=== PATIENT | male | born 1985 | race Caucasian/White ===

== ENCOUNTER 2020-05-10 06:17 | Emergency (ER) | payer BC, SELFPAY ==
--- NOTE | ~2020-05-10 | XR_ITS ---
EXAMINATION: XR hand RT min 3V DATE: 05/10/2020 06:41 INDICATION: Crush injury to the right hand with pain at the fourth metacarpophalangeal joint. TECHNIQUE: Posteroanterior, oblique and lateral views of the right hand were obtained. COMPARISON: 06/28/2018 FINDINGS: Bone alignment is normal. Old healed fracture of the neck of the fifth metacarpal. No acute fracture. Soft tissue swelling over the dorsum of the hand near the base of the third and fourth metacarpals. IMPRESSION: 1. No acute osseous abnormality. Reviewed, dictated and finalized at location A. H OFFICER
[2020-05-10 06:20] VITALS: BP 135/85; PULSE 103; RESP 18; TEMP 36.4; O2SAT 98
--- NOTE | 2020-05-10 06:59 | ED.GENADULT ---
HPI - General Adult General Chief complaint: Extremity Injury, Upper Stated complaint: right hand injury Time Seen by Provider: 05/10/20 06:56 History of Present Illness HPI narrative: Patient is a 34-year-old gentleman who presents the emergency department with chief complaint of right hand pain. Patient states that he had a alice stand to fall over and whacked his right hand when he was trying to lift up a vehicle that was in the mud. Patient states that he has swelling in his fourth and fifth metacarpal area reports that he has prior history of a fracture of his fifth metacarpal. Related Data Allergies Allergy/AdvReac Type Severity Reaction Status Date / Time ibuprofen Allergy Mild Verified 07/03/18 15:05 Penicillins Allergy Mild Verified 07/03/18 15:05 acetaminophen Allergy Unknown NAUSEATED Verified 07/03/18 15:05 codeine Allergy Unknown NAUSEATED Verified 07/03/18 15:05 Review of Systems Review of Systems: Narrative: A 10 system review of systems was completed on the patient and is negative except for what is stated in the HPI. Nursing and ancillary documentation was reviewed. PMFSH Social History Social History Smoking status: Smoker, status unknown Alcohol intake: never Comments Past history of fifth metacarpal fracture Reports that he smokes cigarettes Exam Narrative: Exam Narrative: GENERAL: Well-appearing, well-nourished, and in no acute distress. HEAD: Normocephalic, atraumatic. EYES: PERRLA and EOMI. ENT: Nares clear, no rhinorrhea or epistaxis. Mucous membranes moist. NECK: Supple. CHEST: Clear to auscultation. No respiratory distress. HEART: Regular rate and rhythm. No murmur heard. Normal peripheral pulses. ABDOMEN: Soft, nontender, nondistended, normal active bowel sounds. EXTREMITIES: Normal range of motion. No edema. There is tenderness to palpation in the fourth and fifth metacarpal area SKIN: Warm, dry, no rash. NEURO: No focal deficits. Alert and oriented x3. PSYCH: Normal mood and affect. Course Course Emergency Course: Plain film x-ray of the right hand was read by radiology as negative Vital Signs Vital signs: Vital Signs Temperature 36.4 C L 05/10/20 06:20 Pulse Rate 103 H 05/10/20 06:20 Respiratory Rate 18 05/10/20 06:20 Blood Pressure 135/85 05/10/20 06:20 Pulse Oximetry 98 05/10/20 06:20 Temperature 36.4 C L 05/10/20 06:20 Pulse Rate 103 H 05/10/20 06:20 Respiratory Rate 18 05/10/20 06:20 Blood Pressure 135/85 05/10/20 06:20 Pulse Oximetry 98 05/10/20 06:20 Medical Decision Making Vital Signs Vital Signs: Vital Signs Temperature 36.4 C L 05/10/20 06:20 Pulse Rate 103 H 05/10/20 06:20 Respiratory Rate 18 05/10/20 06:20 Blood Pressure 135/85 05/10/20 06:20 Pulse Oximetry 98 05/10/20 06:20 Temperature 36.4 C L 05/10/20 06:20 Pulse Rate 103 H 05/10/20 06:20 Respiratory Rate 18 05/10/20 06:20 Blood Pressure 135/85 05/10/20 06:20 Pulse Oximetry 98 05/10/20 06:20 Discharge Plan Discharge Clinical Impression: Contusion of hand, right Qualifiers: Encounter type: initial encounter Qualified Code(s): S60.221A - Contusion of right hand, initial encounter Patient Disposition: Home, Self-Care Condition: Stable Instructions: Antibiotic Form, Contusion in Adults (ED), Hematoma (ED) Follow-up/Referrals: Daquan Portillo MD [Physician] - Time of Disposition: 07:02
== END 2020-05-10 07:12 | disposition home or self-care (01) ==
PROVIDERS: Emergency Provider Emergency Medicine
DX: S60.221A Contusion of right hand, initial encounter (principal); W20.8XXA Other cause of strike by thrown, projected or falling object, initial encounter
CPT/HCPCS: 73130; 99283

== ENCOUNTER 2020-08-17 09:26 | Emergency (ER) | payer BC, SELFPAY ==
[2020-08-17] VITALS (15 sets, daily range): BP systolic 116–155; BP diastolic 77–97; PULSE 73–91; RESP 12–22; TEMP 36.6; O2SAT 97–100
--- NOTE | ~2020-08-17 | CT_ITS ---
EXAMINATION: CT abdomen pelvis w con DATE: 08/17/2020 10:28 INDICATION: Abdominal pain, nausea and vomiting for posterior when withdrawal. TECHNIQUE: Computed tomography (CT) of the abdomen and pelvis was performed with 100 mL Omnipaque-350 intravenous contrast. Automated exposure control and iterative reconstruction technique were employe d. The dose-length product was 372.99 mGy-cm. COMPARISON: None FINDINGS: Mild discoid atelectasis in the lingula and right middle lobe. Heart size is normal. No pericardial o r pleural effusion. Liver, gallbladder, pancreas, spleen, bilateral adrenal glands and kidneys are no rmal. No abnormal bowel wall thickening or obstruction. The appendix is not visualized. No pericecal inflammatory change to suggest acute appendicitis. Bladder is normal. No free intraperitoneal gas or fluid. No pathologically enlarged abdominal or pelvic lymphadenopathy. Mild thoracolumbar levocurvatu re. Mild kyphosis at the thoracolumbar junction with chronic anterior wedging, mild at T11 and L1 and moderate severity with 40% anterior vertebral body height loss at T12. IMPRESSION: 1. No acute intra-abdominal/pelvic process. Reviewed, dictated and finalized at location A.
[2020-08-17] MEDS: SODIUM CHLORIDE 0.9% IV 1,000 ML 999 ML IV CONT (09:48)
--- NOTE | 2020-08-17 09:49 | ED.NAVMDI ---
HPI - Nausea/Vomiting/Diarrhea General Chief complaint: Nausea/Vomiting/Diarrhea Stated complaint: ?HEROIN WITHDRAWALS Time Seen by Provider: 08/17/20 09:33 Source: patient Mode of arrival: ambulatory Limitations: no limitations History of Present Illness HPI Narrative: Patient is a 34-year-old male complaining of abdominal pain, 12/25, diffuse, nonradiating accompanied by nausea and vomiting that started today. Patient was just released from longterm yesterday. Patient states that he is on Suboxone due to his heroin abuse in the past. Patient requesting for Suboxone. Related Data Home Medications Medication Instructions Recorded Confirmed buprenorphine-naloxone film 08/17/20 Allergies Allergy/AdvReac Type Severity Reaction Status Date / Time No Known Allergies Allergy Verified 08/17/20 09:29 Review of Systems Review of Systems: All systems reviewed & are unremarkable except as noted in HPI and below Constitutional: Constitutional: Denies body ache(s), Denies chills, Denies excessive sweating, Denies fatigue, Denies fever(s), Denies headache(s), Denies lethargy, Denies malaise, Denies weakness and Denies weight loss Eyes: Eyes: Denies blurry vision, Denies change in vision and Denies loss of vision ENT: Denies dizziness, Denies ear discharge, Denies headache(s), Denies lip swelling, Denies epistaxis, Denies nasal congestion, Denies neck pain, Denies throat swelling and Denies tongue swelling Cardiovascular: Cardiovascular: Denies chest pain, Denies chest pain at rest, Denies chest pain with activity, Denies diaphoresis, Denies rapid heart rate, Denies edema, Denies irregular heart rhythm, Denies lightheadedness, Denies palpitations, Denies dyspnea and Denies dyspnea on exertion Respiratory: Respiratory: Denies chest congestion, Denies cough, Denies hemoptysis, Denies dyspnea and Denies dyspnea on exertion Gastrointestinal: Gastrointestinal: Denies melena, Denies hematochezia, Denies diarrhea and Denies hematemesis Musculoskeletal: Musculoskeletal: Denies abnormal gait, Denies deformity, Denies joint swelling, Denies limited range of motion, Denies neck pain and Denies numbness Neurologic: Denies Abnormal speech present, Denies abnormal gait, Denies confusion, Denies dizziness, Denies headache(s), Denies focal weakness, Denies loss of vision, Denies numbness, Denies Other visual disturbances, Denies Sensory deficit (Neuro) and Denies weakness Psychiatric: Psychiatric: Denies confusion, Denies depression, Denies auditory hallucinations, Denies homicidal ideation and Denies suicidal ideation Endocrine: Endocrine: Denies cold intolerance, Denies excessive sweating, Denies fatigue, Denies heat intolerance and Denies palpitations Hematologic/Lymphatic: Hematologic/Lymphatic: Denies easy bleeding and Denies easy bruising Allergic/Immunologic: Allergic/Immunologic: Denies lip swelling, Denies throat swelling and Denies tongue swelling [facility] Social History Social History Smoking status: Smoker, status unknown Alcohol intake: never Comments Past medical history: None Social history: Positive for smoker, denies any EtOH or drug use. Family history: Negative for CA or aneurysm Exam Const: General: cooperative, healthy appearing, comfortable, no acute distress, well developed, alert and awake; No confusion Orientation/consciousness: oriented to person, oriented to place, oriented to time, patient oriented x3 and No confusion Limitations: no limitations HENMT: Head: normal to inspection, normocephalic and atraumatic Ears: hearing grossly normal bilaterally, TM normal on the right and TM normal on the left General nose exam: Normal external nose present, Normal nares present and No nasal discharge present Face and sinus: normal facial exam Mouth: Yes Normal oral and palatal mucosa present, Yes lip normal, Yes tongue normal and Yes oropharynx normal Throat: posterior or
[2020-08-17 09:53] LABS: Basophils Percent Auto 0.2 % (0.2-1.2); Hematocrit 48.7 % (42.0-52.0); Hemoglobin 16.8 g/dL (14.0-18.0); Immature Granulocyte Absolute 0.06 K/mm3 (0.00-0.031); Immature Granulocyte Percent A 0.4 % (0-0.5); Lymphocytes Absolute Auto 1.11 K/mm3 (0.9-3.2); Lymphocytes Percent Auto 7.6 % (18.3-44.2); Mean Corpuscular HGB Conc 34.5 g/dl (32-36); Mean Corpuscular Hemoglobin 31.1 pg (26-34); Mean Platelet Volume 9.9 fl (7.4-10.4); Monocytes Absolute Auto 0.6 K/mm3 (0.1-0.6); Monocytes Percent Auto 3.7 % (2.6-8.5); Neutrophils Absolute Auto 12.9 K/mm3 (1.3-6.7); Neutrophils Percent Auto 88.1 % (45.5-73.1); Platelet Count Result 331 k/mm3 (150-375); Red Blood Count 5.41 M/mm3 (4.6-6.20); Red Cell Distribution Width 12.9 % (11.5-14.5); White Blood Count 14.7 K/mm3 (4.5-10.0)
[2020-08-17 10:05] LABS: Alanine Aminotransferase 33 U/L (4-50); Alkaline Phosphatase 103 U/L (38-126); Anion Gap 15 mmol/L (8-16); Aspartate Amino Transferase 45 U/L (17-59); Bilirubin,Total 0.9 mg/dL (0.2-1.3); Blood Urea Nitrogen 15 mg/dL (9-20); Calcium 10.8 mg/dL (8.4-10.2); Carbon Dioxide 28 mmol/L (22-30); Chloride 98 mmol/L (98-107); Estimated CRCL calculation 82 ml/min; Estimated Glomerular Filt Rate > 60; Glucose 133 mg/dL (75-110); Lipase 223 U/L (23-300); Potassium 3.8 mmol/L (3.4-5.0); Sodium 141 mmol/L (137-145)
--- NOTE | 2020-08-17 10:10 | PC.NURSE ---
patient unable to give urine sample at this time, declines straight cath.
[2020-08-17] MEDS: PROMETHAZINE HCL 25 MG/ML AMPUL 12.5 MG IV PUSH (10:34)
[2020-08-17 11:44] LABS: Add Urine Microscopic? YES; Appearance Urine Clear (Clear); Bilirubin Urine Negative (Negative); Blood Urine Negative (Negative); Color Urine Amber (Yellow); Glucose Urine UA Negative (Negative); Ketones Urine 1+ mg/dL (Negative); Leukocyte Esterase Ur Negative LEU/UL (Negative); Mucus Urine Moderate /lpf; Nitrate Urine Negative (Negative); Protein Urine 2+ mg/dL (Negative); RBC Urine 0-2 /hpf (0-2); WBC Urine 0-3 /hpf
[2020-08-17 11:47] LABS: Specific Grav Ur > 1.060 (1.001-1.035)
== END 2020-08-17 12:05 | disposition home or self-care (01) ==
PROVIDERS: Emergency Provider Emergency Medicine
DX: R10.84 Generalized abdominal pain (principal); R11.2 Nausea with vomiting, unspecified
CPT/HCPCS: 36415; 74177; 80053; 81001; 83690; 85025; 96361; 96374; 99284; J2550; J7030; Q9967